=== PATIENT | female | born 1960 | race Caucasian/White ===

== ENCOUNTER → 2016-08-21 | Outpatient (CLI) | payer OTHER | LOC: FIMAGING 15:55 | DX: Z12.31 Encounter for screening mammogram for malignant neoplasm of breast (principal) | CPT/HCPCS: G0202 ==

== ENCOUNTER 2017-01-19 18:46 | Emergency (ER) | payer OTHER ==
--- NOTE | 2017-01-19 19:05 | EDPHY ---
H & P Time Seen by Provider: 01/19/17 19:01 HPI/ROS: 56-year-old female presents complaining of nasal congestion, nasal drainage, sore throat, blocked ears laryngitis. The symptoms have been approximately 2 weeks duration however the laryngitis started today. She states she has a history of relatively frequent sinus infections and is often placed on Levaquin for those. Review of systems As per HPI General no fever no chills no weakness HEENT no eye pain no eye discharge. No eye redness, Positive sore throat Respiratory no cough, no shortness of breath Cardiac no chest pain, no peripheral edema GI no abdominal pain, no diarrhea, no constipation, no nausea, no vomiting no flank pain, no hematuria, no dysuria Musculoskeletal no myalgias, no joint pain Heme no easy bruising, no easy bleeding Endo no polyuria, no polydipsia Skin no rashes, no pruritus Neuro no syncope, no dizziness, no headaches Psych is no suicidal ideation, no homicidal ideation Past Medical/Surgical History: hypertension, hypothyroidism, frequent sinus infections Social History: denies alcohol or drug use Smoking Status: Never smoked Physical Exam: 56-year-old female Alert and oriented nontoxic appearance, no acute distress afebrile Atraumatic normocephalic Extraocular muscles intact, anicteric Nares mild yellowish discharge, nasal turbinates erythematous swollen Oropharynx mild erythema no tonsillar swelling no exudate no uvular deviation, tolerating own secretions Neck supple no lymphadenopathy Lungs clear to auscultation bilaterally Heart regular rate and rhythm Abdomen normoactive bowel sounds soft nontender Extremities no cyanosis clubbing or edema Skin no rash Constitutional: Initial Vital Signs Temperature (C) 36.7 C 01/19/17 18:55 Heart Rate 82 01/19/17 18:55 Respiratory Rate 16 01/19/17 18:55 Blood Pressure 138/97 H 01/19/17 18:55 O2 Sat (%) 95 01/19/17 18:55 O2 Delivery Mode Room Air Allergies/Adverse Reactions: Sulfa (Sulfonamide Antibiotics) Allergy (Intermediate, Verified 01/19/17 19:02) Rash Home Medications: Medication Instructions Recorded Losartan Potassium 03/25/16 Synthroid 03/25/16 Aieve 01/19/17 Fluticasone Nasal [Flonase Nasal 2 sprays NASAL DAILY #1 mdi 01/19/17 [place]] Lunesta 01/19/17 levOFLOXACIN [Levaquin] 500 mg PO DAILY #14 tablet 01/19/17 Medical Decision Making ED Course/Re-evaluation: patient seen and evaluated for possible sinusitis with nasal congestion, sore throat, blocked ears. Differential diagnosis considered URI, otitis media, pharyngitis, viral syndrome, sinusitis, bronchitis, pneumonia physical exam significant for swollen nasal turbinates with erythema and purulent nasal discharge mild erythema of pharynx impression sinusitis plan fluticasone, Levaquin follow-up with PCP Departure - Departure Disposition: Home, Routine, Self-Care Clinical Impression: Sinusitis Condition: Good Instructions: Sinusitis (ED) Referrals: Stella Davis MD [Primary Care Provider] - As per Instructions Stand Alone Forms: Work Excuse Prescriptions: Fluticasone Nasal [Flonase Nasal [place]] 2 sprays NASAL DAILY #1 mdi levOFLOXACIN [Levaquin] 500 mg PO DAILY #14 tablet
[2017-01-19 19:14] VITALS: PULSE 82; RESP 16; TEMP 98.1; O2SAT 95
[2017-01-19 19:28] VITALS: BP 136/91
== END 2017-01-19 19:28 | disposition home or self-care (01) ==
LOC: CED 18:46
DX: J32.9 Chronic sinusitis, unspecified (principal); I10 Essential (primary) hypertension

== ENCOUNTER → 2017-08-22 | Outpatient (CLI) | payer OTHER | LOC: FIMAGING 08:30 | PROVIDERS: ATTEND Family Medicine | DX: Z12.31 Encounter for screening mammogram for malignant neoplasm of breast (principal) ==

== ENCOUNTER → 2018-09-03 | Outpatient (CLI) | payer OTHER | LOC: BRMIMAGING 09:15 | PROVIDERS: ATTEND Family Medicine | DX: N63.10 Unspecified lump in the right breast, unspecified quadrant (principal) | CPT/HCPCS: 76641-PO ==